=== PATIENT | male | born 1980 | race African-American/Black ===

== ENCOUNTER 2016-10-29 11:35 | Inpatient (IN) | payer SELFPAY ==
[~2016-10-29] VITALS: Ht 182.9 cm; Wt 79.1 kg
[2016-10-29 11:35] VITALS: O2SAT 99
[2016-10-29] MEDS ORDERED: ceFAZolin 2 GM PREMIX 50 ML ONE (11:41)
[2016-10-29] MEDS ORDERED: DIPHTH/TETANUS/ACEL PERTUSSIS (BOOSTER) 0.5 ML VIAL/PFS IM ONE (11:41)
[2016-10-29] MEDS ORDERED: MORPHINE SULFATE 8 MG/ML INJ ONE (11:43)
[2016-10-29] MEDS ORDERED: ONDANSETRON HCL 4 MG/2 ML VIAL ONE (11:43)
[2016-10-29 11:59] LABS: AUTOMATED NEUTROPHIL # 3.1 TH/MM3 (1.8-7.7); BASOPHIL % 0.8 % (0.0-2.0); EOSINOPHIL # 0.1 TH/MM3 (0-0.4); EOSINOPHIL % 2.1 % (0.0-4.0); HEMATOCRIT 35.2 % (39.0-51.0); HEMO FLAGS DIFF FINAL; LYMPH % 25.2 % (9.0-44.0); LYMPHOCYTE # 1.3 TH/MM3 (1.0-4.8); MEAN CELL VOLUME 85.2 FL (80.0-100.0); MEAN CORPUSCULAR HEMOGLOBIN 28.8 PG (27.0-34.0); MEAN CORPUSCULAR HGB CONC 33.8 % (32.0-36.0); MONO % 12.7 % (0.0-8.0); NEUT % 59.2 % (16.0-70.0); PLATELET COUNT 276 TH/MM3 (150-450); RED BLOOD COUNT 4.13 MIL/MM3 (4.50-5.90); RED CELL DISTRIBUTION WIDTH 13.5 % (11.6-17.2); WHITE BLOOD COUNT 5.3 TH/MM3 (4.0-11.0)
[2016-10-29 12:00] LABS: I-STAT POTASSIUM 3.6 MMOL/L (3.5-4.9)
[2016-10-29] MEDS ORDERED: PHENYLEPH/NS 1000 MCG/10 ML SYR IV ONE (12:00)
[2016-10-29] MEDS ORDERED: ONDANSETRON HCL 4 MG/2 ML VIAL IV PUSH ONE (12:00)
[2016-10-29] MEDS ORDERED: LACTATED RINGER'S 1000 ML INJ 1,000 ML IV ONE (12:00)
[2016-10-29] MEDS ORDERED: PROPOFOL 200 MG/20 ML AMP IV ONE (12:00)
[2016-10-29] MEDS ORDERED: NORMOSOL R INJ 1,000 ML IV ONE (12:00)
[2016-10-29] MEDS ORDERED: ePHEDrine/NS 25 MG/5 ML SYR IV ONE (12:00)
[2016-10-29 12:05] VITALS: O2SAT 100
[2016-10-29] MEDS ORDERED: IOHEXOL 350 MG/ML 10 ML VIAL (for RAD DIAG) IV ONE (12:05)
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
[2016-10-29 12:08] LABS: APTT (PATIENT) 23.2 SEC (24.3-30.1); INTERNATIONAL NORMALIZED RATIO 0.9 RATIO; PROTHROMBIN TIME - PATIENT 10.4 SEC (9.8-11.6)
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
[2016-10-29] MEDS ORDERED: GENTAMICIN SULFATE 80 MG/2 ML VIAL IV ONE (12:55)
[2016-10-29] MEDS ORDERED: GENTAMICIN SULFATE 80 MG/2 ML VIAL IRRIGATION ONE (12:58)
[2016-10-29] MEDS ORDERED: LORazepam 2 MG/ML VIAL IV PUSH PRN ×4 (13:00)
[2016-10-29] MEDS ORDERED: SODIUM CHLOR 0.9% 1000 ML INJ 1,000 ML IV SCH (13:00)
[2016-10-29] MEDS: BACITRACIN TOP OINT 15 GM TUBE TOP SCH ×2 (13:00→21:00)
[2016-10-29] MEDS ORDERED: HYDROmorphone HCL PF 1 MG/ML VIAL IVP PRN (13:00)
[2016-10-29] MEDS ORDERED: FLUMAZENIL 0.5 MG/5 ML VIAL IV PUSH PRN (13:00)
[2016-10-29] MEDS ORDERED: MISCELLANEOUS NURSING INFORMATION XX SCH (13:00)
[2016-10-29] MEDS ORDERED: ACETAMINOPHEN/HYDROcodone 325 MG/5 MG TAB PO PRN (13:00)
[2016-10-29] MEDS ORDERED: ENALAPRILAT 1.25 MG/ML VIAL IV PRN (13:00)
[2016-10-29] MEDS ORDERED: LORazepam 1 MG TAB PO PRN (13:00)
[2016-10-29] MEDS ORDERED: ONDANSETRON HCL 4 MG/2 ML VIAL IV PRN (13:00)
[2016-10-29] MEDS: DOCUSATE SODIUM 100 MG CAP PO SCH ×2 (13:00→22:07)
[2016-10-29] MEDS ORDERED: LORazepam 2 MG TAB PO PRN (13:00)
[2016-10-29] MEDS ORDERED: CHLORHEXIDINE GLUCONATE 2 % 1 PACK (2 CLOTHS) TOP PRN (13:00)
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
[2016-10-29] MEDS ORDERED: diphenhydrAMINE HCL 25 MG CAP PO PRN (14:15)
--- NOTE | 2016-10-29 14:15 | PD.OP ---
cc: Fausto Reed MD Operative Report Date of Surgery: Oct 29, 2016 Preoperative Diagnosis: Open left tibia shaft fracture Postoperative Diagnosis: Procedure: Irrigation debridement of open tibia fracture, intramedullary nail fixation left tibia, closure of left leg laceration Anesthesia: Gen. Surgeon: Fausto Reed Energy Conservation Director(s): Александр Eduardo PA-C The surgical procedure was assisted by my physician carpenter assistant. My P.A. presence was necessary throughout this case for the manipulation and positioning of the surgical extremity. My P.A. was assisting me throughout the duration of this procedure. The skill set of a physician carpenter assistant was medically necessary to complete this procedure. During the surgical case the ophthalmic surgical assistant was working at the back table and the physician carpenter assistant was directly assisting me. Operation and Findings: Implants: ITS [10]mm x [375]mm tibial nail Plan of activity: Toe-touch weightbearing Patient was seen and examined preoperatively. Patient was confused and was unable to consent for surgery himself. Attempt was made to reach family unsuccessfully. I discussed this case with Dr. Moran who is the trauma surgeon. We agreed that the case and surgery are medically necessary as well as medically emergent due to the nature of the open fracture. Risks of surgery include bleeding, infection, painful hardware, nonunion, malunion, leg length discrepancy, need for hardware removal, and medical complications associated with anesthesia including blood clots, stroke, heart attack, and were discussed. Operative site was marked. Patient was brought to the operating room placed on or table. Patient received IV antibiotics and was given IV sedation GETA. Operative leg was prepped with alcohol Hibiclens and draped in usual sterile fashion. Timeout procedure was performed Procedure began irrigation and debridement of the open fracture. The track laceration was extended. The fracture was exposed. Curettes and rongeurs were used to debride soft tissue and bone. There was minimal gross contamination. All foreign material was excised sharply. The ends of the bone were also thoroughly debrided with curettes. Wound was now thoroughly irrigated with sterile saline. Next attention was turned towards reduction of fracture. Traction was applied. Fracture was reduced. There was comminution of the fracture. The fracture reduced and excellent alignment was achieved. Fracture clamp was used to aid in reduction. Next a 3 cm incision was made proximal to the patella. Quadriceps tendon was split in line with fibers. Cannulas were placed in the patellofemoral joint to protect the articular surface at all times. A guidepin was placed into the tibia and advanced in the tibial canal. Fluoroscopy was used to confirm appropriate guidepin placement. An opening reamer was used to open the tibial canal. A ball-tipped guidewire was advanced down the tibial canal. Guidepin was passed across the fracture site into the center of the distal tibia. Fluoroscopy confirmed guidepin placement. The nail length was now measured. The fracture was now held in a reduced position and the canal was reamed. The canal was reamed up to appropriate size. A ITS nail was now selected. Next the nail was fully seated. Using perfect osage technique 3 distal interlocking screws were placed. Using the insertion handle as a guide 2 proximal interlocking screws were placed. Fluoroscopy confirmed excellent of fracture with well-placed hardware. Incisions and the knee joint were thoroughly irrigated with sterile saline. Fascia was closed with #1 Vicryl, subcutaneous tissues closed with 3-0 Vicryl and skin was closed with ricco. The traumatic laceration was closed with 3-0 PDS and 3-0 nylon. Sterile dressings were applied. Patient was awakened and transferred to recovery in stable condition. Fausto Reed MD Oct 29, 2016 14:15
[2016-10-29] MEDS ORDERED: fentaNYL CITRATE 250 MCG/5 ML AMP ONE (14:39)
[2016-10-29] MEDS: LACTATED RINGER'S 1000 ML INJ 1,000 ML IV SCH ×3 (14:45→22:08)
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
[2016-10-29] MEDS: PANTOPRAZOLE SODIUM 40 MG VIAL IVP SCH (15:40)
[2016-10-29] MEDS: MULTIVITAMIN INJ 10 ML, THIAMINE INJ 100 MG, FOLIC ACID INJ 1 MG in SODIUM CHLORID 0.9%... IV SCH (15:41)
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
[2016-10-29] MEDS ORDERED: ERGOCALCIFEROL (VIT D2) 50,000 UNIT CAP PO SCH (16:00)
[2016-10-29] MEDS ORDERED: ceFAZolin 2 GM PREMIX 50 ML IV SCH (20:00)
[2016-10-29] MEDS: ceFAZolin 2 GM PREMIX 50 ML IV SCH (20:00)
[2016-10-29 20:05] VITALS: BP 116/75; PULSE 55; RESP 17; TEMP 96.2; O2SAT 98
[2016-10-29] MEDS: GENTAMICIN 80 MG PREMIX 100 ML IV SCH (21:00)
[2016-10-29] MEDS: MORPHINE SULFATE 4 MG/ML INJ IV PUSH PRN (21:10)
[2016-10-29 21:20] LABS: AMPHETAMINE, URINE NEG (NEG); BARBITURATES, URINE NEG (NEG); COCAINE, URINE NEG (NEG)
[2016-10-29] MEDS: CHLORHEXIDINE GLUCONATE 2 % 1 PACK (2 CLOTHS) TOP SCH (21:50)
[2016-10-29] MEDS: MAGNESIUM HYDROXIDE SUSP 30 ML CUP PO SCH (22:07)
[2016-10-29] MEDS: CALCIUM/VITAMIN D 250 MG/125 U TAB PO SCH (22:08)
[2016-10-29] MEDS: ACETAMINOPHEN/HYDROcodone 325 MG/10 MG TAB PO PRN (22:20)
[2016-10-30] VITALS (8 sets, daily range): BP systolic 102–148; BP diastolic 68–90; PULSE 52–81; RESP 16–18; TEMP 96.6–98; O2SAT 97–100
[2016-10-30] MEDS: ACETAMINOPHEN/HYDROcodone 325 MG/10 MG TAB PO PRN ×2 (04:30→09:48)
[2016-10-30] MEDS: ceFAZolin 2 GM PREMIX 50 ML IV SCH ×3 (04:32→20:19)
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
[2016-10-30] MEDS: MORPHINE SULFATE 4 MG/ML INJ IV PUSH PRN ×2 (05:40→10:34)
[2016-10-30] MEDS: GENTAMICIN 80 MG PREMIX 100 ML IV SCH ×3 (05:40→20:19)
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
[2016-10-30 06:41] LABS: AUTOMATED NEUTROPHIL # 6.1 TH/MM3 (1.8-7.7); BASOPHIL % 0.4 % (0.0-2.0); EOSINOPHIL % 0.5 % (0.0-4.0); HEMATOCRIT 30.3 % (39.0-51.0); HEMO FLAGS DIFF FINAL; LYMPH % 18.7 % (9.0-44.0); LYMPHOCYTE # 1.7 TH/MM3 (1.0-4.8); MEAN CELL VOLUME 85.6 FL (80.0-100.0); MEAN CORPUSCULAR HEMOGLOBIN 28.9 PG (27.0-34.0); MEAN CORPUSCULAR HGB CONC 33.8 % (32.0-36.0); MONO % 13.4 % (0.0-8.0); PLATELET COUNT 230 TH/MM3 (150-450); RED BLOOD COUNT 3.54 MIL/MM3 (4.50-5.90); RED CELL DISTRIBUTION WIDTH 13.5 % (11.6-17.2); WHITE BLOOD COUNT 9.2 TH/MM3 (4.0-11.0)
--- NOTE | 2016-10-30 06:45 | PD.ORT.PN ---
Subjective Subjective Remarks Pain controlled no new complaints Objective Vitals Vital Signs Date Time Temp Pulse Resp B/P Pulse Ox O2 Delivery O2 Flow Rate FiO2 10/30/16 04:05 96.9 56 16 114/71 98 10/30/16 00:05 98.0 57 17 127/75 98 10/29/16 21:15 98.4 54 14 98 Room Air 10/29/16 21:00 53 14 122/63 100 Room Air 10/29/16 20:05 96.2 55 17 116/75 98 10/29/16 20:00 97.6 56 15 121/75 98 Room Air 10/29/16 19:00 53 15 118/79 100 Room Air 10/29/16 18:30 54 15 114/75 100 Room Air 10/29/16 18:00 97.5 55 16 118/78 100 Room Air 10/29/16 17:30 59 16 110/75 100 Room Air 10/29/16 17:00 58 16 115/72 100 Room Air 10/29/16 16:30 62 15 113/73 100 Room Air 10/29/16 16:15 63 16 115/73 100 Room Air 10/29/16 16:00 63 14 112/66 100 Room Air 10/29/16 15:45 69 16 115/61 100 Room Air 10/29/16 15:30 64 16 105/65 100 Room Air 10/29/16 15:15 64 15 113/69 99 Room Air 10/29/16 15:00 65 15 106/66 98 Room Air 10/29/16 14:45 63 15 111/63 99 Room Air 10/29/16 14:30 97.5 69 18 112/63 100 Room Air 10/29/16 12:05 100 Nasal Cannula 2.00 10/29/16 11:35 99 2.00 I/O 10/29/16 10/29/16 10/29/16 10/30/16 10/30/16 10/30/16 07:00 15:00 23:00 07:00 15:00 23:00 Intake Total 1500 ml 1199 ml 982 ml Output Total 150 ml 500 ml 225 ml Balance 1350 ml 699 ml 757 ml Intake Oral 0 ml 240 ml IV Total 1199 ml 742 ml Other 1500 ml Output Urine Total 500 ml 225 ml Estimated Blood Loss 150 ml # Voids 0 # Bowel Movements 0 Result Diagram: 10/29/16 1140 Other Results Laboratory Tests Test 10/29/16 11:40 Prothrombin Time 10.4 SEC (9.8-11.6) Prothromb Time International 0.9 RATIO Ratio Imaging Last 24 hours Impressions Pelvis X-Ray 10/29/16 1140 Signed Impressions: Service Date/Time: Saturday, October 29, 2016 11:28 - CONCLUSION: Negative for fracture. Chaka Najera MD FACR Head CT 10/29/16 1140 Signed Impressions: Service Date/Time: Saturday, October 29, 2016 11:56 - CONCLUSION: Negative for acute process. Moderate artifact and motion are present. Chaka Najera MD FACR Chest X-Ray 10/29/16 1140 Signed Impressions: Service Date/Time: Saturday, October 29, 2016 11:28 - CONCLUSION: Artifact from backboard otherwise negative. Chaka Najera MD FACR Abdomen/Pelvis CT 10/29/16 1140 Signed Impressions: Service Date/Time: Saturday, October 29, 2016 12:03 - CONCLUSION: No visceral organ injury or other acute abnormality. Partially lumbarized sacrum with degenerative changes. Dimitris Vaughn MD Tibia/Fibula X-Ray 10/29/16 0000 Signed Impressions: Service Date/Time: Saturday, October 29, 2016 11:28 - CONCLUSION: Both bone fracture tibia and fibula as described above. Chaka Najera MD FACR Radius/Ulna X-Ray 10/29/16 0000 Signed Impressions: Service Date/Time: Saturday, October 29, 2016 11:28 - CONCLUSION: Negative for fracture on this single view. Chaka Najera MD FACR Objective Remarks Patient is awake but has some confusion. Examination of bilateral upper extremities reveals no pain with shoulder elbow or wrist motion. Sensation intact in radial ulnar and median nerves to patient' s bilaterally. Radial pulses are palpable bilaterally. Examination of right leg reveals no pain with hip, knee, or ankle motion. Skin is intact. Sensation is grossly intact. Examination of left leg reveals no tenderness around his hip or knee. Clean dry dressings intact. Intact sensation distally with strong dorsiflexion plantar flexion of foot Assessment & Plan Assessment and Plan open left tibia shaft fracture status post irrigation debridement and intramedullary rell fixation POD 1 Nonweightbearing left lower extremity Daily dressing changes beginning POD 2 IV antibiotics for 48 hours We'll plan for possible discharge tomorrow after antibiotics are completed Follow-up Dr. Reed or PA in 2 weeks Héctor Eduardo Jr. Oct 30, 2016 06:45
[2016-10-30 06:56] LABS: BICARBONATE 28.7 MEQ/L (21.0-32.0); POTASSIUM 3.9 MEQ/L (3.5-5.1)
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
[2016-10-30] MEDS: DOCUSATE SODIUM 100 MG CAP PO SCH ×2 (09:48→20:20)
[2016-10-30] MEDS: CALCIUM/VITAMIN D 250 MG/125 U TAB PO SCH ×3 (09:48→17:24)
[2016-10-30] MEDS: BACITRACIN TOP OINT 15 GM TUBE TOP SCH ×2 (09:51→20:24)
[2016-10-30] MEDS: SODIUM CHLORIDE 0.9% FLUSH 10 ML FLUSH IV FLUSH PRN ×2 (10:34→13:08)
[2016-10-30] MEDS ORDERED: DOCU1CAP39 PO (11:26)
[2016-10-30] MEDS ORDERED: MAGN400S PO (11:26)
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
[2016-10-30] MEDS ORDERED: WALKER WHEELS/F1 MIS (12:33)
[2016-10-30] MEDS: oxyCODONE/ACETAMINOPHEN 5 MG/325 MG TAB PO PRN ×2 (12:59→20:29)
[2016-10-30] MEDS: GABAPENTIN 300 MG CAP PO SCH ×2 (12:59→17:24)
[2016-10-30] MEDS: KETOROLAC TROMETHAMINE 30 MG/ML (IVP) VIAL IV PUSH SCH ×3 (13:01→23:11)
[2016-10-30] MEDS: PANTOPRAZOLE SODIUM 40 MG VIAL IVP SCH (13:07)
[2016-10-30] MEDS: ENOXAPARIN SODIUM 40 MG/0.4 ML SYRINGE SQ SCH (13:07)
[2016-10-30] MEDS: MULTIVITAMIN INJ 10 ML, THIAMINE INJ 100 MG, FOLIC ACID INJ 1 MG in SODIUM CHLORID 0.9%... IV SCH (17:19)
[2016-10-30] MEDS: LACTATED RINGER'S 1000 ML INJ 1,000 ML IV SCH (20:19)
[2016-10-30] MEDS: MAGNESIUM HYDROXIDE SUSP 30 ML CUP PO SCH (20:20)
--- NOTE | 2016-10-30 20:53 | HHI.FF ---
Face to Face Verification Diagnosis: (1) Open fracture of left tibia and fibula Home Health Nursing Order: Medical education Signs/symptoms of disease process Medication education-adverse effect Wound care and dressing changes (Clean incision with alcohol, cover with xeroform, 4x4's and wrap with ruthie wrap. - Daily dressing changes) Nursing assessment with vital signs I have seen patient Niyah Javed on 10/30/16. My clinical findings support the need for the requested home health care services because: Ltd mobility - disease progression Deconditioned w/ increased weakness Limited ability to care for self High risk of falls I certify that my clinical findings support that this patient is homebound because: Post-op weakness Unsteady gait/balance (Non weight bearing LEFT Lower extremity) [id number] bed/chair Kari Prajapati Oct 30, 2016 20:53 Kari Prajapati Oct 30, 2016 20:53
[2016-10-31 00:01] VITALS: BP 129/72; PULSE 61; RESP 17; TEMP 96.7; O2SAT 100
[2016-10-31] MEDS: CHLORHEXIDINE GLUCONATE 2 % 1 PACK (2 CLOTHS) TOP SCH (00:26)
[2016-10-31] MEDS: GENTAMICIN 80 MG PREMIX 100 ML IV SCH ×2 (04:47→13:37)
[2016-10-31] MEDS: ceFAZolin 2 GM PREMIX 50 ML IV SCH ×3 (04:47→20:52)
[2016-10-31] MEDS: LACTATED RINGER'S 1000 ML INJ 1,000 ML IV SCH ×2 (05:06→16:00)
[2016-10-31] MEDS: KETOROLAC TROMETHAMINE 30 MG/ML (IVP) VIAL IV PUSH SCH ×3 (05:52→17:53)
--- NOTE | 2016-10-31 07:08 | PD.ORT.PN ---
Subjective Subjective Remarks Pain controlled no new complaints Objective Vitals Vital Signs Date Time Temp Pulse Resp B/P Pulse Ox O2 Delivery O2 Flow Rate FiO2 10/31/16 00:01 96.7 61 17 129/72 100 10/30/16 19:00 97.3 62 17 133/82 99 10/30/16 16:00 96.7 62 17 119/72 100 10/30/16 11:41 97.5 57 17 117/75 99 10/30/16 09:15 97 21 10/30/16 07:41 96.6 52 17 102/68 98 I/O 10/30/16 10/30/16 10/30/16 10/31/16 10/31/16 10/31/16 07:00 15:00 23:00 07:00 15:00 23:00 Intake Total 982 ml 720 ml 1134 ml 512 ml Output Total 225 ml 400 ml Balance 757 ml 720 ml 734 ml 512 ml Intake Oral 240 ml 720 ml 480 ml 250 ml IV Total 742 ml 654 ml 262 ml Output Urine Total 225 ml 400 ml # Voids 3 2 # Bowel Movements 0 0 0 0 Result Diagram: 10/30/16 0540 10/30/16 0540 Imaging Last 24 hours Impressions Pelvis X-Ray 10/29/16 1140 Signed Impressions: Service Date/Time: Saturday, October 29, 2016 11:28 - CONCLUSION: Negative for fracture. Chaka Najera MD FACR Head CT 10/29/16 1140 Signed Impressions: Service Date/Time: Saturday, October 29, 2016 11:56 - CONCLUSION: Negative for acute process. Moderate artifact and motion are present. Chaka Najera MD FACR Chest X-Ray 10/29/16 1140 Signed Impressions: Service Date/Time: Saturday, October 29, 2016 11:28 - CONCLUSION: Artifact from backboard otherwise negative. Chaka Najera MD FACR Abdomen/Pelvis CT 10/29/16 1140 Signed Impressions: Service Date/Time: Saturday, October 29, 2016 12:03 - CONCLUSION: No visceral organ injury or other acute abnormality. Partially lumbarized sacrum with degenerative changes. Dimitris Vaughn MD Tibia/Fibula X-Ray 10/29/16 0000 Signed Impressions: Service Date/Time: Saturday, October 29, 2016 11:28 - CONCLUSION: Both bone fracture tibia and fibula as described above. Chaka Najera MD FACR Radius/Ulna X-Ray 10/29/16 0000 Signed Impressions: Service Date/Time: Saturday, October 29, 2016 11:28 - CONCLUSION: Negative for fracture on this single view. Chaka Najera MD FACR Objective Remarks Examination of bilateral upper extremities reveals no pain with shoulder elbow or wrist motion. Sensation intact in radial ulnar and median nerves to patient' s bilaterally. Radial pulses are palpable bilaterally. Examination of right leg reveals no pain with hip, knee, or ankle motion. Skin is intact. Sensation is grossly intact. Examination of left leg reveals no tenderness around his hip or knee. Clean dry dressings intact. Intact sensation distally with strong dorsiflexion plantar flexion of foot Assessment & Plan Assessment and Plan open left tibia shaft fracture status post irrigation debridement and intramedullary rell fixation POD 2 Nonweightbearing left lower extremity Daily dressing changes IV antibiotics for 48 hours Discharge today after antibiotics are completed hand written script on chart with given name Follow-up Dr. Reed or [facility] in 2 weeks Héctor Eduardo Jr. Oct 31, 2016 07:08
[2016-10-31 07:47] VITALS: BP 112/64; PULSE 54; RESP 16; TEMP 97.5; O2SAT 100
[2016-10-31] MEDS: GABAPENTIN 300 MG CAP PO SCH ×3 (08:53→17:53)
[2016-10-31] MEDS: DOCUSATE SODIUM 100 MG CAP PO SCH ×2 (08:53→20:51)
[2016-10-31] MEDS: CALCIUM/VITAMIN D 250 MG/125 U TAB PO SCH ×3 (08:53→18:00)
[2016-10-31] MEDS: BACITRACIN TOP OINT 15 GM TUBE TOP SCH ×2 (08:57→20:51)
[2016-10-31] MEDS: oxyCODONE/ACETAMINOPHEN 5 MG/325 MG TAB PO PRN ×2 (09:25→18:19)
[2016-10-31] MEDS ORDERED: BACITRACIN OINT 0.9 GM PKT TOP PRN (11:30)
[2016-10-31 11:56] VITALS: BP 114/68; PULSE 61; RESP 16; TEMP 98.2; O2SAT 99
[2016-10-31] MEDS: ENOXAPARIN SODIUM 40 MG/0.4 ML SYRINGE SQ SCH (13:37)
[2016-10-31] MEDS: PANTOPRAZOLE SODIUM 40 MG VIAL IVP SCH (13:37)
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
[2016-10-31 16:00] VITALS: BP 118/68; PULSE 67; RESP 16; TEMP 96.3; O2SAT 100
[2016-10-31] MEDS: MULTIVITAMIN INJ 10 ML, THIAMINE INJ 100 MG, FOLIC ACID INJ 1 MG in SODIUM CHLORID 0.9%... IV SCH (16:00)
[2016-10-31 20:11] VITALS: BP 118/70; PULSE 63; RESP 19; TEMP 97.9; O2SAT 96
[2016-10-31] MEDS: MAGNESIUM HYDROXIDE SUSP 30 ML CUP PO SCH (20:51)
[2016-10-31 23:19] VITALS: BP 111/70; PULSE 50; RESP 18; TEMP 96.8; O2SAT 99
[2016-11-01] MEDS: LACTATED RINGER'S 1000 ML INJ 1,000 ML IV SCH (00:29)
[2016-11-01] MEDS: KETOROLAC TROMETHAMINE 30 MG/ML (IVP) VIAL IV PUSH SCH ×3 (00:30→14:04)
[2016-11-01] MEDS: CHLORHEXIDINE GLUCONATE 2 % 1 PACK (2 CLOTHS) TOP SCH (04:00)
[2016-11-01] MEDS: ceFAZolin 2 GM PREMIX 50 ML IV SCH ×2 (04:56→14:05)
[2016-11-01 08:00] VITALS: BP 116/78; PULSE 48; RESP 14; TEMP 96.5; O2SAT 100
[2016-11-01] MEDS: BACITRACIN TOP OINT 15 GM TUBE TOP SCH (09:00)
[2016-11-01] MEDS: CALCIUM/VITAMIN D 250 MG/125 U TAB PO SCH ×2 (09:50→14:04)
[2016-11-01] MEDS: GABAPENTIN 300 MG CAP PO SCH ×2 (09:50→14:04)
[2016-11-01] MEDS: DOCUSATE SODIUM 100 MG CAP PO SCH (09:50)
[2016-11-01] MEDS: oxyCODONE/ACETAMINOPHEN 5 MG/325 MG TAB PO PRN (09:54)
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
[2016-11-01 12:00] VITALS: BP 127/83; PULSE 51; RESP 16; TEMP 96.6; O2SAT 100
[2016-11-01] MEDS: ENOXAPARIN SODIUM 40 MG/0.4 ML SYRINGE SQ SCH (14:03)
[2016-11-01] MEDS: PANTOPRAZOLE SODIUM 40 MG VIAL IVP SCH (14:04)
== END 2016-11-01 15:53 | disposition home or self-care (01) | DRG 494 ==
LOC: NEPI 11:35 → EDBD 12:54 → EEVIPCON 12:54 → NEDA 12:54 → N06B 21:36
PROVIDERS: ADMIT Surgery; ATTEND Surgery
PROC: 0QSH04Z Reposition Left Tibia with Internal Fixation Device, Open Approach (ICD-10-PCS; principal; 2016-10-29 12:29)
DX: S82.202B Unspecified fracture of shaft of left tibia, initial encounter for open fracture type I or II (principal); S82.492B Other fracture of shaft of left fibula, initial encounter for open fracture type I or II; S50.812A Abrasion of left forearm, initial encounter; V47.5XXA Car driver injured in collision with fixed or stationary object in traffic accident, initial encounter; Y92.410 Unspecified street and highway as the place of occurrence of the external cause; R41.0 Disorientation, unspecified; R40.2422 Glasgow coma scale score 9-12, at arrival to emergency department; R82.5 Elevated urine levels of drugs, medicaments and biological substances; D64.9 Anemia, unspecified; R73.9 Hyperglycemia, unspecified
CPT/HCPCS: 29515; 70450; 71010; 72125; 72170; 73090; 73590; 74177; 76000; 80048; 80307; 82435; 82565; 82947; 84132; 84295; 84520; 85025; 85610; 85730; 86850; 86900; 86901; 90471; 90715; 94150; 96361; 96365; 96374; 96375; 99291; C1713; C9113; G0390; J0690; J1580; J1650; J1885; J2270; J2370; J2405; J3010; J3411; J7040; J7120; Q9967